=== PATIENT | male | born 1945 | race Caucasian/White ===

== ENCOUNTER 2016-08-13 13:30 | Emergency (ER) | payer MEDICARE, OTHER ==
[~2016-08-13] VITALS: Ht 175.3 cm; Wt 113.4 kg
[2016-08-13] MEDS ORDERED: FISH1000 PO (13:44)
[2016-08-13] MEDS ORDERED: SIMV5TAB4 PO (13:44)
[2016-08-13] MEDS ORDERED: AMLO5TAB2 PO (13:44)
[2016-08-13] MEDS ORDERED: LEVO125T3 PO (13:44)
[2016-08-13] MEDS ORDERED: DERMABOND TOPICAL SKIN ADHESIVE TOP ONE (14:30)
--- NOTE | 2016-08-13 15:47 | REP ---
Left ring finger four views: There is no fracture or dislocation. There is a tiny opacity in the soft tissues distal to the distal tuft, possibly a foreign body. 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 There is a metallic ring around the proximal phalanges. Impression: No fracture or dislocation. Possible tiny foreign body in the soft tissues distally. Signed by Sebastien Pierce MD 08/13/2016 03:38 P
[2016-08-13] MEDS ORDERED: KEFL500C7 PO (16:09)
[2016-08-13 16:16] VITALS: BP 121/87
== END 2016-08-13 16:28 | disposition home or self-care (01) ==
LOC: M ED 14:59
DX: S61.215A Laceration without foreign body of left ring finger without damage to nail, initial encounter (principal); W23.1XXA Caught, crushed, jammed, or pinched between stationary objects, initial encounter; Y92.007 Garden or yard of unspecified non-institutional (private) residence as the place of occurrence of the external cause; Y93.89 Activity, other specified; Y99.8 Other external cause status; I10 Essential (primary) hypertension; E78.5 Hyperlipidemia, unspecified; Z79.899 Other long term (current) drug therapy; Z88.8 Allergy status to other drugs, medicaments and biological substances; Z91.018 Allergy to other foods